=== PATIENT | male | born 1950 | race Caucasian/White ===

== ENCOUNTER 2018-05-13 08:31 | Emergency (ER) | payer BC, OTHER ==
[2018-05-13] MEDS ORDERED: NS 1,000 ML IV ONE (08:58)
--- NOTE | 2018-05-13 08:58 | EDPHY ---
H & P Stated Complaint: Fell back standing up from toilet-hit lower back on toilet, diarrhea Time Seen by Provider: 05/13/18 08:54 HPI/ROS: HPI: This is a 67-year-old male who presents with Chief Complaint: Fell back standing up from toilet-hit lower back on toilet, diarrhea Location: Right and left lower rib, mid and lower back Quality: Injury Duration: 330 this morning Signs and Symptoms: No bleeding, no radiation, no numbness, no weakness, no tingling, no incontinence, no decreased range of motion, no swelling, + pain, no fever Timing: Acute, worse Severity: Moderate Context: Patient has a history of bowel obstruction status post exploratory laparotomy presents accompanied by with eating marijuana cookie yesterday evening after dinner. This is the 1st time he ingested marijuana. He then went to bed and woke up around 3:30 a.m. Having loose stools x2. He denies any abdominal pain, nausea, vomiting, blood in stool. He reports that he was standing up getting off the toilet when he started to feel lightheaded and lost his balance. He reports that he started to fall backwards. He twisted and hit he believes both of his ribs on the rails of the commode. He initially felt left-sided rib pain but now has developed right-sided rib pain over the last several hours. He also believes that he hit his mid and lower back on the toilet. He denies any urinary or bowel incontinence or symptoms. Pain is nonradiating in nature but midline. Denies LOC/head injury/neck pain/dizziness/ nausea/vomiting/amnesia. He denies any fevers and believes that the loose stools are related to marijuana ingestion. Modifying Factors: None Comment: ROS: A comprehensive 10 system review of systems is otherwise negative aside from elements mentioned in the history of present illness. MEDICAL/SURGICAL/SOCIAL HISTORY: Medical/surgical history: osteoarthritis, appy, cholecystectomy, bowel obstruction-exploratory laparotomy Social history: Former smoker. . CONSTITUTIONAL: Polite and cooperative, elderly white male, awake and alert, no obvious distress HEENT: Atraumatic and normocephalic. NECK: supple, no midline tenderness, flexion 45 degrees, extension 45 degrees, right and left lateral flexion 45 degrees. No meningismus. Cardiovascular: Normal S1/S2, mild tachycardia, regular rhythm, without murmur rub or gallop. PULMONARY/CHEST: Symmetrical and bilateral anterior and lateral lower ribs show reproducible tenderness; no ecchymosis. no crepitus. Clear to auscultation bilaterally. Good air movement. No accessory muscle usage. ABDOMEN: Soft, nondistended, nontender, no ecchymosis. PELVIC: no pain with rocking; bilateral hips flexion 125 degrees, extension 30 degrees, with no pain internal rotation and no pain external rotation. BACK: Thoracic and lumbar midline tenderness, no paraspinous spasm, deep tendon reflexes 2/2, mild pain with straight leg raise, No foot drop. Achilles reflexes are equal bilaterally. EXTREMITIES: 2/2 pulses, strength 5/5, DIP/PIP/MCP flexion/extension intact with good light touch sensation. no deformities, no clubbing, no cyanosis or edema. NEUROLOGICAL: no focal neuro deficits. GCS 15. Light touch sensation intact. SKIN: Warm and dry, no erythema. no rash. Good capillary refill. Source: Patient Exam Limitations: No limitations - Medical/Surgical History Hx Asthma: No Hx Chronic Respiratory Disease: No Hx Diabetes: No Hx Cardiac Disease: No Hx Renal Disease: No Hx Cirrhosis: No Hx Alcoholism: No Hx HIV/AIDS: No Hx Splenectomy or Spleen Trauma: No Other PMH: osteoarthritis, appy, cholecystectomy, bowel obstruction - Social History Smoking Status: Former smoker Constitutional: Initial Vital Signs Temperature (C) 36.9 C 05/13/18 08:35 Heart Rate 102 H 05/13/18 08:35 Respiratory Rate 18 05/13/18 08:35 Blood Pressure 108/80 05/13/18 08:35 O2 Sat (%) 97 05/13/18 08:35 O2 Delivery Mode Room Air Allergies/Adverse Reactions: Penicillins Allergy (Severe, Verified 03/10/15 22:35) carbamazepine [From Tegretol] Allergy (Intermediate, Verified 03/10/15 22:35) aspirin Allergy (Unknown, Verified 03/10/15 22:35) Home Medications: Medication Instructions Recorded Celebrex 05/13/18 Librium 10 mg (RX) 05/13/18 oxyCODONE/APAP 5/325 [Percocet 1 - 2 tab PO Q4H PRN #12 tab 05/13/18 5/325 (*)] Medical Decision Making - Diagnostics Imaging Results: Imaging Impressions Abdomen CT 05/13/18 08:59 Impression: 1. No evidence of thoracic aortic dissection, pneumothorax or abdominopelvic laceration or hemorrhage. 2. Thoracolumbar spondylosis 0.7 cm anterolisthesis of L4 on L5 contributing to moderate central spinal stenosis likely on a degenerative basis. Age- indeterminate T1, T8, and T11 mild anterior wedge compression deformities likely chronic, but with clinical concern for acute thoracolumbar spine fracture , further evaluation with MRI is recommended. 3. 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 Vascular surgery consultation is recommended for vasculitis workup given multifocal visceral aneurysms and dissections. 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 4. Mild dilatation of the intrahepatic and extrahepatic biliary tree without mass or stone visualized, further evaluation with MRCP or ERCP is recommended. Ena Villela was notified of these findings by telephone at 11:45 AM on 2017. Chest CT 05/13/18 08:59 Impression: 1. No evidence of thoracic aortic dissection, pneumothorax or abdominopelvic laceration or hemorrhage. 2. Thoracolumbar spondylosis 0.7 cm anterolisthesis of L4 on L5 contributing to moderate central spinal stenosis likely on a degenerative basis. Age- indeterminate T1, T8, and T11 mild anterior wedge compression deformities likely chronic, but with clinical concern for acute thoracolumbar spine fracture , further evaluation with MRI is recommended. 3. 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 Vascular surgery consultation is recommended for vasculitis workup given multifocal visceral aneurysms and dissections. 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 4. Mild dilatation of the intrahepatic and extrahepatic biliary tree without mass or stone visualized, further evaluation with MRCP or ERCP is recommended. Maricruzleticia Manohar was notified of these findings by telephone at 11:45 AM on 2017. Lumbar Spine CT 05/13/18 08:59 Impression: 1. No evidence of thoracic aortic dissection, pneumothorax or abdominopelvic laceration or hemorrhage. 2. Thoracolumbar spondylosis 0.7 cm anterolisthesis of L4 on L5 contributing to moderate central spinal stenosis likely on a degenerative basis. Age- indeterminate T1, T8, and T11 mild anterior wedge compression deformities likely chronic, but with clinical concern for acute thoracolumbar spine fracture , further evaluation with MRI is recommended. 3. 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 Vascular surgery consultation is recommended for vasculitis workup given multifocal visceral aneurysms and dissections. 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 4. Mild dilatation of the intrahepatic and extrahepatic biliary tree without mass or stone visualized, further evaluation with MRCP or ERCP is recommended. Ena Villela was notified of these findings by telephone at 11:45 AM on 2017. Thoracic Spine CT 05/13/18 08:59 Impression: 1. No evidence of thoracic aortic dissection, pneumothorax or abdominopelvic laceration or hemorrhage. 2. Thoracolumbar spondylosis 0.7 cm anterolisthesis of L4 on L5 contributing to moderate central spinal stenosis likely on a degenerative basis. Age- indeterminate T1, T8, and T11 mild anterior wedge compression deformities likely chronic, but with clinical concern for acute thoracolumbar spine fracture , further evaluation with MRI is recommended. 3. 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 Vascular surgery consultation is recommended for vasculitis workup given multifocal visceral aneurysms and dissections. 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 4. Mild dilatation of the intrahepatic and extrahepatic biliary tree without mass or stone visualized, further evaluation with MRCP or ERCP is recommended. Ena Villela was notified of these findings by telephone at 11:45 AM on 2017. ED Course/Re-evaluation: Vital signs reviewed and show mild tachycardia upon arrival. Placed on hospital monitor and IV access and laboratory studies obtained. EKG and urinalysis ordered Will CT his chest/abdomen/pelvis/thoracic and lumbar spine according to trauma protocol. Given 1 L normal saline, IV morphine, IV Zofran EKG reviewed by attending and shows no acute ischemic changes, no heart block, no arrhythmias. 0915: Notified by tech that patient politely refuses narcotics and Zofran. 0930: Labs reviewed. No signs of leukocytosis/anemia/platelet dysfunction/APRYL/ elevated LFTs/electrolyte imbalance/coagulopathy/ACS. Urinalysis is negative. 1200: Called by radiologist who advised that CT chest shows no acute pneumothorax, rib fracture. CT abdomen and pelvis show no acute intra- abdominal process/hemorrhage. CT thoracic spine shows old T1, T8 and T11 wedge compression fracture. Patient reports that he fell when he had an injury to his foot several years ago and this may have occurred then. 1210: Ambulatory on road test with no assistance with minimal pain. Offered patient admission for syncope and collapse. and patient politely declined as they feel that this is due to marijuana ingestion which I feel is reasonable. Patient reports that he will follow up with his primary care provider tomorrow or . is getting a double mastectomy on Saturday. Given prescription for Percocet and Neurosurgery follow-up as needed. This patient was seen under the supervision of my secondary supervising physician. I evaluated care for this patient independently. Discussed this patient with Dr. Stratton Differential Diagnosis: Dizziness including but not limited to peripheral and central causes of vertigo , orthostatic causes including dehydration, and blood loss. - Data Points Laboratory Results: Laboratory Results 05/13/18 09:05 05/13/18 09:05 05/13/18 05/13/18 05/13/18 11:40 09:13 09:08 WBC RBC Hgb POC Hgb 13.9 gm/dL gm/dL (13.7-17.5) Hct POC Hct 41 % % (40-51) MCV MCH MCHC RDW Plt Count MPV Neut % (Auto) Lymph % (Auto) [place] % (Auto) Eos % (Auto) Baso % (Auto) Nucleat RBC Rel Count Absolute Neuts (auto) Absolute Lymphs (auto) Absolute Monos (auto) Absolute Eos (auto) Absolute Basos (auto) Absolute Nucleated RBC Immature Gran % Immature Gran # PT INR APTT POC Sodium 140 mEq/L mEq/L (135-145) Sodium POC Potassium 3.9 mEq/L mEq/L (3.3-5.0) Potassium POC Chloride 106 mEq/L mEq/L (97-110) Chloride Carbon Dioxide Anion Gap POC BUN 18 mg/dL mg/dL (7-23) BUN Creatinine POC Creatinine 1.0 mg/dL mg/dL (0.7-1.3) Estimated GFR Glucose POC Glucose 115 mg/dL H mg/dL (70-100) Calcium Total Bilirubin Conjugated Bilirubin Unconjugated Bilirubin AST ALT Alkaline Phosphatase POC Troponin I 0.00 ng/mL ng/mL (0.00-0.08) Total Protein Albumin Urine Color PALE YELLOW Urine Appearance CLEAR Urine pH 6.0 (5.0-7.5) Ur Specific [place] 1.027 (1.002-1.030) Urine Protein NEGATIVE (NEGATIVE) Urine Ketones NEGATIVE (NEGATIVE) Urine Blood NEGATIVE (NEGATIVE) Urine Nitrate NEGATIVE (NEGATIVE) Urine Bilirubin NEGATIVE (NEGATIVE) Urine Urobilinogen NEGATIVE EU EU (0.2-1.0) Ur Leukocyte Esterase NEGATIVE (NEGATIVE) Urine Glucose NEGATIVE (NEGATIVE) 05/13/18 05/13/18 05/13/18 09:05 09:05 09:05 WBC 6.79 10^3/uL 10^3/uL (3.80-9.50) RBC 4.33 10^6/uL L 10^6/uL (4.40-6.38) Hgb 14.1 g/dL g/dL (13.7-17.5) POC Hgb Hct 40.1 % % (40.0-51.0) POC Hct MCV 92.6 fL fL (81.5-99.8) MCH 32.6 pg pg (27.9-34.1) MCHC 35.2 g/dL g/dL (32.4-36.7) RDW 12.6 % % (11.5-15.2) Plt Count 167 10^3/uL 10^3/uL (150-400) MPV 10.9 fL fL (8.7-11.7) Neut % (Auto) 79.8 % H % (39.3-74.2) Lymph % (Auto) 11.0 % L % (15.0-45.0) [place] % (Auto) 8.1 % % (4.5-13.0) Eos % (Auto) 0.3 % L % (0.6-7.6) Baso % (Auto) 0.1 % L % (0.3-1.7) Nucleat RBC Rel Count 0.0 % % (0.0-0.2) Absolute Neuts (auto) 5.41 10^3/uL 10^3/uL (1.70-6.50) Absolute Lymphs (auto) 0.75 10^3/uL L 10^3/uL (1.00-3.00) Absolute Monos (auto) 0.55 10^3/uL 10^3/uL (0.30-0.80) Absolute Eos (auto) 0.02 10^3/uL L 10^3/uL (0.03-0.40) Absolute Basos (auto) 0.01 10^3/uL L 10^3/uL (0.02-0.10) Absolute Nucleated RBC 0.00 10^3/uL 10^3/uL (0-0.01) Immature Gran % 0.7 % % (0.0-1.1) Immature Gran # 0.05 10^3/uL 10^3/uL (0.00-0.10) PT 14.8 SEC SEC (12.0-15.0) INR 1.14 (0.83-1.16) APTT 27.7 SEC SEC (23.0-38.0) POC Sodium Sodium 138 mEq/L mEq/L (135-145) POC Potassium Potassium 4.5 mEq/L mEq/L (3.3-5.0) POC Chloride Chloride 106 mEq/L mEq/L (97-110) Carbon Dioxide 22 mEq/l mEq/l (22-31) Anion Gap 10 mEq/L mEq/L (6-14) POC BUN BUN 17 mg/dL mg/dL (7-23) Creatinine 1.0 mg/dL mg/dL (0.7-1.3) POC Creatinine Estimated GFR > 60 Glucose 114 mg/dL H mg/dL (70-100) POC Glucose Calcium 9.5 mg/dL mg/dL (8.5-10.4) Total Bilirubin 1.0 mg/dL mg/dL (0.1-1.4) Conjugated Bilirubin 0.2 mg/dL mg/dL (0.0-0.5) Unconjugated Bilirubin 0.8 mg/dL mg/dL (0.0-1.1) AST 37 IU/L IU/L (17-59) ALT 40 IU/L IU/L (21-72) Alkaline Phosphatase 65 IU/L IU/L (38-126) POC Troponin I Total Protein 6.4 g/dL g/dL (6.3-8.2) Albumin 3.8 g/dL g/dL (3.5-5.0) Urine Color Urine Appearance Urine pH Ur Specific [place] Urine Protein Urine Ketones Urine Blood Urine Nitrate Urine Bilirubin Urine Urobilinogen Ur Leukocyte Esterase Urine Glucose Medications Given: Discontinued Medications Sodium Chloride (Ns) 1,000 mls @ 0 mls/hr IV EDNOW ONE; Wide Open PRN Reason: Protocol Stop: 05/13/18 08:59 Last Admin: 05/13/18 09:25 Dose: 1,000 mls Morphine Sulfate (Morphine) 6 mg IVP EDNOW ONE Stop: 05/13/18 08:59 Last Admin: 05/13/18 09:44 Dose: 6 mg Ondansetron HCl (Zofran) 4 mg IVP EDNOW ONE Stop: 05/13/18 08:59 Last Admin: 05/13/18 09:44 Dose: 4 mg Point of Care Test Results: Chemistry 05/13/18 05/13/18 09:13 09:08 POC Sodium 140 mEq/L mEq/L (135-145) POC Potassium 3.9 mEq/L mEq/L (3.3-5.0) POC Chloride 106 mEq/L mEq/L (97-110) POC BUN 18 mg/dL mg/dL (7-23) POC Creatinine 1.0 mg/dL mg/dL (0.7-1.3) POC Glucose 115 mg/dL H mg/dL (70-100) POC Troponin I 0.00 ng/mL ng/mL (0.00-0.08) ISTAT H&H 05/13/18 09:13 POC Hgb 13.9 gm/dL gm/dL (13.7-17.5) POC Hct 41 % % (40-51) Departure - Departure Disposition: Home, Routine, Self-Care Clinical Impression: Marijuana use, Near syncope Contusion of ribs Qualifiers: Encounter type: initial encounter Laterality: unspecified laterality Qualified Code(s): S20.219A - Contusion of unspecified front wall of thorax, initial encounter Compression fx, thoracic spine Qualifiers: Encounter type: subsequent encounter Fracture type: closed Fracture healing: with routine healing Qualified Code(s): S22.000D - Wedge compression fracture of unspecified thoracic vertebra, subsequent encounter for fracture with routine healing Condition: Good Instructions: Rib Contusion (ED), Vertebral Compression Fracture (ED), Near Syncope (ED) Additional Instructions: Rest as much as possible until you are feeling better. Consume a minimum of 8-10 glasses of water or electrolyte fluid replacement drinks that include Gatorade, Powerade, Pedialyte. Please refrain from using marijuana or alcohol. Take Tylenol 650 mg every 4 hours and/or Ibuprofen 600 mg every 8 hours with food as needed for pain. Use Percocet every 6 hours as needed for severe/break through pain. Do not use Tylenol and Percocet concomitantly. Follow-up with primary care provider in the next 1-2 days. If back pain continues to worsen or persist; follow-up with Neurosurgery for further evaluation and determine if MRI is needed. Return to the ER immediately if you have new or worsening back pain, fevers/ chills, flu like symptoms, incontinence or inability to urinate or defecate, weakness, paralysis, or any other symptom that concerns you Referrals: JAMILAH SONI [Primary Care Provider] - As per Instructions Anel Brandt DO [Doctor of Osteopathy] - As per Instructions Prescriptions: oxyCODONE/APAP 5/325 [Percocet 5/325 (*)] 1 - 2 tab PO Q4H PRN #12 tab PRN Reason: Pain, Severe
[2018-05-13 09:19] LABS: PLATELET COUNT 167 10^3/uL (150-400)
[2018-05-13] MEDS: ONDANSETRON 4 MG/2 ML VIAL IVP ONE ×2 (09:19→09:44)
[2018-05-13 09:27] LABS: INR 1.14 (0.83-1.16); PROTIME(PATIENT) 14.8 SEC (12.0-15.0)
[2018-05-13] MEDS ORDERED: ONDANSETRON 4 MG/2 ML VIAL ONE (09:43)
[2018-05-13] MEDS ORDERED: IOPAMIDOL (ISOVUE-300) 100 ML BTL ONE ×2 (09:48→10:45)
[2018-05-13 11:18] VITALS: BP 114/78
--- NOTE | 2018-05-15 12:47 | CPEKG ---
Test Reason : OPEN Blood Pressure : / mmHG Vent. Rate : 090 BPM Atrial Rate : 090 BPM P-R Int : 136 ms QRS Dur : 095 ms QT Int : 397 ms P-R-T Axes : 078 047 038 degrees QTc Int : 486 ms Sinus rhythm Borderline prolonged QT interval Confirmed by Tracie Skinner ([id number]) on 05/15/2018 12:47:20 PM Referred By: Confirmed By:Tracie Skinner
== END 2018-05-13 12:18 | disposition home or self-care (01) ==
DX: R55 Syncope and collapse (principal); F12.90 Cannabis use, unspecified, uncomplicated; S20.219A Contusion of unspecified front wall of thorax, initial encounter; W18.12XA Fall from or off toilet with subsequent striking against object, initial encounter; Y93.E8 Activity, other personal hygiene; E86.9 Volume depletion, unspecified; S22.000D Wedge compression fracture of unspecified thoracic vertebra, subsequent encounter for fracture with routine healing; I72.8 Aneurysm of other specified arteries; R93.2 Abnormal findings on diagnostic imaging of liver and biliary tract; Z87.19 Personal history of other diseases of the digestive system; Z87.891 Personal history of nicotine dependence; Z88.0 Allergy status to penicillin
CPT/HCPCS: 71260; 72129; 72132; 74177; 93005; 96361; 96374; 96375; 99285; J2270; J2405; Q9967; 82435-PO; 82565-PO; 82947-PO; 84132-PO; 84295-PO; 84484-PO; 84520-PO; 85014-PO